=== PATIENT | male | born 2000 | race Hispanic/Latino ===

== ENCOUNTER 2021-01-24 21:14 | Emergency (ER) | payer OTHER ==
[~2021-01-24] VITALS: Ht 170.2 cm; Wt 68.0 kg
[2021-01-24 21:40] LABS: BASOPHILS % (AUTO) 0.4 % (0.0-5.0); EOSINOPHILS % (AUTO) 0.3 % (0.0-8.0); HEMATOCRIT 46.9 % (42-54); LYMPHOCYTES % (AUTO) 10.6 % (21.0-51.0); MEAN CORPUSCULAR HEMOGLOBIN 28.2 pg (27.0-33.0); MEAN CORPUSCULAR HGB CONC 33.7 g/dL (32.0-36.0); MEAN CORPUSCULAR VOLUME 83.6 fL (80-100); MONOCYTES % (AUTO) 3.8 % (3.0-13.0); NEUTROPHILS % (AUTO) 84.7 % (40.0-77.0); PLATELET COUNT (AUTO) 279 K/uL (130-400); RED BLOOD CELL COUNT(AUTO) 5.61 MIL/uL (4.50-6.20); RED CELL DISTRIBUTION WIDTH 12.3 % (11.0-15.5); WHITE BLOOD COUNT (AUTO) 10.2 K/uL (4.8-10.8)
[2021-01-24 21:50] LABS: CREATININE 1.2 mg/dL (0.5-1.5); POTASSIUM 3.6 mmol/L (3.5-5.1)
[2021-01-24 21:54] LABS: ALBUMIN 4.9 g/dL (3.5-5.0); BILIRUBIN,TOTAL 0.8 mg/dL (0.2-1.0); TOTAL PROTEIN, SERUM 8.7 g/dL (6.0-8.3)
[2021-01-24 22:51] VITALS: BP 110/63
[2021-01-24 22:57] VITALS: BP 123/79
[2021-01-24] MEDS ORDERED: ACETAMINOPHEN 325 MG TAB PO ONE (23:15)
[2021-01-24] MEDS ORDERED: ONDANSETRON HCL 4 MG/2 ML VIAL IVP ONE (23:15)
[2021-01-24] MEDS ORDERED: PANTOPRAZOLE 40 MG/VIAL IVP ONE (23:15)
[2021-01-24] MEDS ORDERED: DICYCLOMINE HCL 10 MG/5 ML ML PO ONE (23:15)
[2021-01-24] MEDS ORDERED: SODIUM CHLORIDE 0.9% 1000ML 1,000 ML IV ONE (23:15)
[2021-01-24] MEDS ORDERED: DICY20TA2 PO (23:58)
[2021-01-24] MEDS ORDERED: SULF1TAB42 PO (23:58)
[2021-01-24] MEDS ORDERED: ONDA4TAB4 PO (23:58)
[2021-01-24] MEDS ORDERED: PANT40TA54 PO (23:58)
[2021-01-25] MEDS ORDERED: PANTOPRAZOLE 40 MG/VIAL ONE (00:58)
[2021-01-25] MEDS ORDERED: DICYCLOMINE HCL 20 MG TAB ONE (00:59)
[2021-01-25] MEDS ORDERED: ACETAMINOPHEN 325 MG TAB ONE (00:59)
[2021-01-25 01:10] VITALS: BP 121/74
== END 2021-01-25 01:20 | disposition home or self-care (01) ==
LOC: EDH 21:14
DX: K52.9 Noninfective gastroenteritis and colitis, unspecified (principal); E86.0 Dehydration; K29.70 Gastritis, unspecified, without bleeding; Z79.899 Other long term (current) drug therapy
CPT/HCPCS: 36415; 80053; 83690; 85025; 96374; 96375; 99284; C9113; J2405